=== PATIENT | female | born 1960 | race Caucasian/White ===

== ENCOUNTER 2016-08-30 08:21 | Day surgery (SDC) | payer OTHER ==
[~2016-08-30] VITALS: Ht 157.5 cm; Wt 51.7 kg
[2016-08-30] MEDS ORDERED: ZESTRIL20 MG PO (09:15)
[2016-08-30] MEDS ORDERED: GLUCOPHAGE500 MG PO (09:16)
[2016-08-30] MEDS ORDERED: GLUCOTROL5 MG PO (09:16)
[2016-08-30] MEDS ORDERED: ZOCOR20 MG PO (09:17)
[2016-08-30] MEDS ORDERED: NIASPAN500 MG PO (09:17)
[2016-08-30] MEDS ORDERED: PROPOFOL 200 MG/20 ML VIAL IV ONE (10:01)
[2016-08-30] MEDS ORDERED: ONDANSETRON 4 MG/2 ML VIAL IVP PRN (10:10)
[2016-08-30] MEDS ORDERED: HYDROmorphone 1 MG/ML AMP IVP PRN (10:10)
[2016-08-30] MEDS ORDERED: BLOOD GLUCOSE MONITORING 1 DEV DEV FS ONE (10:10)
[2016-08-30] MEDS ORDERED: INSULIN HUMAN REGULAR 100 UNITS/ML 10 ML VIAL IVP ONE (11:05)
[2016-08-30] MEDS ORDERED: INSULIN LISPRO 100 UNITS/ML VIAL SUBQ SCH (11:09)
[2016-08-30] MEDS ORDERED: HYDROmorphone PFS 2 MG/ML SYR ONE (11:15)
== END 2016-08-30 12:30 | disposition home or self-care (01) ==
LOC: MDS 08:21 → MMU 08:21 → MDS 12:30
PROVIDERS: ATTEND Internal Medicine Gastroenterology
DX: K83.8 Other specified diseases of biliary tract (principal); I10 Essential (primary) hypertension; E78.5 Hyperlipidemia, unspecified; F17.210 Nicotine dependence, cigarettes, uncomplicated; Z90.49 Acquired absence of other specified parts of digestive tract
CPT/HCPCS: 36415; 43262; 71010; 74330; 82948; 86677; 93005; J1170; J1815; J2704; J7030; Q9965

== ENCOUNTER 2018-11-08 12:27 | Emergency (ER) | payer OTHER ==
[~2018-11-08] VITALS: Ht 157.5 cm; Wt 53.5 kg
[~2018-11-08 12:27] MED LIST: LISI-420 PO; METF500T PO; NIAC500T6 PO; SIMV20TA1 PO
[2018-11-08 13:15] VITALS: BP 183/89
--- NOTE | 2018-11-08 13:53 | NUR ---
BIB SELF WITH C/O ABDOMINAL SHARP PAIN RADIATING TO MID BACK X 3 DAYS. DENIES TRAUMA, INJURY, N/V/D, FEVER, SOB, DYSURIA. TOOK MOTRIN 800 MG THIS AM WITH NO RELIEF. LAST FOOD INTAKE LAST NIGHT, TOLERATED WELL. HOB UP. BED SIDE RAILS UP X1. ON LOW BED POSITION, LOCKED. ER TO EVALUATE PT
--- NOTE | 2018-11-08 13:53 | NUR ---
PT AMBUALTED TO BED 5.
--- NOTE | 2018-11-08 14:37 | NUR ---
PT'S B/P ELEVATED 180/76. DR HOLLIS NOTIFIED AND AWARE. NO NEW ORDERS GIVEN.
--- NOTE | 2018-11-08 14:37 | NUR ---
DR HOLLIS AT BEDSIDE FOR PT EVALUATION
[2018-11-08] MEDS ORDERED: KETOROLAC 60 MG/2 ML VIAL IM ONE (14:50)
[2018-11-08] MEDS ORDERED: PROMETHAZINE 25 MG/ML VIAL IM ONE (14:50)
[2018-11-08] MEDS ORDERED: MORPHINE SULFATE 4 MG/ML SYR IM ONE (14:50)
[2018-11-08 15:54] LABS: BILIRUBIN,URINE NEGATIVE (NEGATIVE); BLOOD, URINE TRACE-I (NEGATIVE); COLOR,URINE YELLOW (YELLOW); LEUKOCYTE ESTERASE ,URINE 2+ (NEGATIVE); NITRITE, URINE NEGATIVE (NEGATIVE); UGLUCOSE 3+ (NEGATIVE)
[2018-11-08 15:55] LABS: APPEARANCE,URINE SLIGHTLY CLOUDY (CLEAR)
[2018-11-08 16:01] LABS: BARBITURATE, URINE NEG. ng/ml (NEG <=200); BENZODIAZEPINE, URINE NEG. ng/mL (NEG <=200); CANNABINOID, URINE NEG. ng/mL (NEG <=50); COCAINE, URINE NEG. ng/mL (NEG <=300); OPIATE, URINE NEG. ng/mL (NEG <=2000); PHENCYCLIDINE SCREEN,URINE NEG. ng/mL (NEG <=25); RBC,URINE 0-5 /HPF (0-5); WBC,URINE 20-60 /HPF (0-5)
[2018-11-08] MEDS ORDERED: LEVOFLOXACIN 500 MG TAB PO ONE (16:25)
[2018-11-08] MEDS ORDERED: cefTRIAXone 1,000 MG in LIDOCAINE 1% ***ER ONLY *** 2.1 ML IM ONE (16:25)
[2018-11-08] MEDS ORDERED: cefTRIAXone 1,000 MG VIAL ONE (16:50)
[2018-11-08] MEDS ORDERED: LIDOCAINE MPF 1% - 5 mL VIAL 5 ML ONE (16:52)
[2018-11-08 18:11] VITALS: BP 134/76
--- NOTE | 2018-11-08 18:11 | NUR ---
Patient discharged with v/s stable. Written and verbal after care instructions given and explained. Patient alert, oriented and verbalized understanding of instructions. Ambulatory with steady gait. All questions addressed prior to discharge. ID band removed. Patient advised to follow up with PMD. Rx of Levaquin 500mg and Tramadol 50mg given. Patient educated on indication of medication including possible reaction and side effects. Opportunity to ask questions provided and answered.
== END 2018-11-08 18:11 | disposition home or self-care (01) ==
LOC: MED 12:27
DX: N39.0 Urinary tract infection, site not specified (principal); E11.9 Type 2 diabetes mellitus without complications; I10 Essential (primary) hypertension; Z90.49 Acquired absence of other specified parts of digestive tract; Z90.710 Acquired absence of both cervix and uterus; Z79.84 Long term (current) use of oral hypoglycemic drugs; Z79.899 Other long term (current) drug therapy
CPT/HCPCS: 80305; 81001; 82948; 87086; 87186; 96372; 99283; J0696; J1885; J2001; J2270; J2550

== ENCOUNTER 2018-11-09 19:46 | Emergency (ER) | payer OTHER ==
[~2018-11-09] VITALS: Ht 157.5 cm; Wt 53.5 kg
[2018-11-09 19:54] VITALS: BP 183/106
--- NOTE | 2018-11-09 20:05 | NUR ---
TO ED 11. REPORT TO JOLANTA DANGELO.
--- NOTE | 2018-11-09 20:15 | NUR ---
BIB SELF REPORTS GENERALIZED ABD PAIN X 3 DAYS. STATES PAIN HAS NOT IMPROVED AFTER TAKING TRAMADOL PRESCRIBED YESTERDAY. BOWEL SOUNDS ACTIVE. STATES LAST BM YESTERDAY MORNING. DENIES NVD. DENIES OTHER SYMPTOMS AT THIS TIME.
--- NOTE | 2018-11-09 20:18 | NUR ---
LAB AT BEDSIDE.
[2018-11-09 20:28] LABS: BASOPHILS % (AUTO) 0.3 % (0.0-2.0); EOSINOPHILS # (AUTO) 0.2 K/uL (0-0.4); EOSINOPHILS % (AUTO) 2.1 % (0.0-4.0); HEMATOCRIT 39.9 % (36-48); HEMOGLOBIN 13.5 g/dL (12.0-16.0); MEAN CORPUSCULAR HEMOGLOBIN 30 pg (27-31); MEAN CORPUSCULAR HGB CONC 34 g/dL (33-37); MEAN CORPUSCULAR VOLUME 88.4 fL (80-94); MONOCYTES # (AUTO) 0.5 K/uL (0.8-1.0); MONOCYTES % (AUTO) 6.3 % (1.7-9.3); NEUTROPHILS # (AUTO) 5.4 K/uL (1.8-7.7); NEUTROPHILS % (AUTO) 66.3 % (42.2-75.2); PLATELET COUNT (AUTO) 199 K/uL (140-450); RED BLOOD CELL COUNT(AUTO) 4.52 MIL/uL (4.20-5.40); RED CELL DISTRIBUTION WIDTH 12.9 % (11.6-13.7); WHITE BLOOD COUNT (AUTO) 8.2 K/uL (4.8-10.8)
[2018-11-09 20:29] LABS: APPEARANCE,URINE CLEAR (CLEAR); BILIRUBIN,URINE NEGATIVE (NEGATIVE); BLOOD, URINE 1+ (NEGATIVE); COLOR,URINE YELLOW (YELLOW); LEUKOCYTE ESTERASE ,URINE NEGATIVE (NEGATIVE); NITRITE, URINE NEGATIVE (NEGATIVE); UGLUCOSE 3+ (NEGATIVE)
[2018-11-09 20:36] LABS: WBC,URINE 0-5 /HPF (0-5)
[2018-11-09 20:41] LABS: ALBUMIN 4.1 g/dL (3.4-5.0); ANION GAP 17.3 (8-16); CARBON DIOXIDE 23.7 mmol/L (21-32); CREATININE 0.8 mg/dL (0.6-1.3); TOTAL BILIRUBIN 0.6 mg/dL (0.0-1.0)
--- NOTE | 2018-11-09 21:47 | NUR ---
PATIENT REQUESTING PAIN MEDICATION. MARVEL MADE AWARE.
--- NOTE | 2018-11-09 21:51 | NUR ---
DR HART AT BEDSIDE.
[2018-11-09] MEDS ORDERED: KETOROLAC 30 MG/ML VIAL IVP ONE (22:00)
[2018-11-09] MEDS ORDERED: NACL 0.9% 1,000 ML IV ONE (22:00)
[2018-11-09] MEDS ORDERED: ONDANSETRON 4 MG/2 ML VIAL IVP ONE (22:00)
--- NOTE | 2018-11-09 22:29 | NUR ---
PATIENT TAKEN TO CT IN WHEELCHAIR
--- NOTE | 2018-11-09 22:37 | NUR ---
PT RETURN FROM CT
[2018-11-09 23:51] VITALS: BP 181/94
--- NOTE | 2018-11-09 23:52 | NUR ---
Patient discharged with v/s stable. Written and verbal after care instructions given and explained. Patient alert, oriented and verbalized understanding of instructions. Ambulatory with steady gait. All questions addressed prior to discharge. ID band removed. Patient advised to follow up with PMD. Rx of NORCO ZOFRAN given. Patient educated on indication of medication including possible reaction and side effects. Opportunity to ask questions provided and answered.
== END 2018-11-09 23:52 | disposition home or self-care (01) ==
LOC: MED 19:46
DX: N39.0 Urinary tract infection, site not specified (principal); G89.29 Other chronic pain; E11.9 Type 2 diabetes mellitus without complications; I10 Essential (primary) hypertension; Z79.899 Other long term (current) drug therapy; Z79.84 Long term (current) use of oral hypoglycemic drugs; Z90.710 Acquired absence of both cervix and uterus
CPT/HCPCS: 36415; 74176; 80053; 81001; 85025; 96374; 96375; 99284; J1885; J2405; J7030